=== PATIENT | male | born 1985 | race Asian ===

== ENCOUNTER 2023-05-10 10:15 | Outpatient (CLI) | payer MEDICAID, SELFPAY | END 2023-05-10 10:16 | disposition home or self-care (01) | LOC: NFLDREF 05-11 02:03 | PROVIDERS: PCP Physician Assistant Medical; Referring Provider Physician Assistant Medical; Visit Provider Nurse Practitioner Family | DX: E78.5 Hyperlipidemia, unspecified (principal); R53.83 Other fatigue; R73.09 Other abnormal glucose | CPT/HCPCS: 80061; 84443 ==

== ENCOUNTER 2023-05-29 16:03 | Outpatient (CLI) | payer MEDICAID, SELFPAY ==
--- NOTE | 2023-05-29 16:00 | CRLHL7_ITS ---
For Patients: As a result of the Century Cures Act, medical imaging exams and procedure reports are released immediately into your electronic medical record. You may view this report before your referring provider. If you have questions, please contact your health care provider. INDICATION: Other fatigue, family hx of thyroid cancer COMPARISON: 02/20/2021 TECHNIQUE: Weller scale and color Doppler images were acquired of the thyroid gland. FINDINGS: The thyroid gland demonstrates mildly heterogeneous echogenicity and has a smooth outer contour. The right lobe measures 5.1 x 1.6 x 2.1 cm and the left lobe measures 4.5 x 1.5 x 1.9 cm in size. Isthmus measures 5 millimeters. There are no suspicious masses or nodules. The color Doppler images demonstrate normal vascularity. There is no evidence of cervical lymphadenopathy or parathyroid mass. IMPRESSION: No suspicious findings. No thyroid nodule. Dictated by Tanmay Castro MD @ 05/30/2023 11:49:14 AM (Electronically Signed)
== END 2023-05-29 16:04 | disposition home or self-care (01) ==
LOC: US 16:05
PROVIDERS: PCP Physician Assistant Medical; Visit Provider Nurse Practitioner Family
DX: R53.83 Other fatigue (principal)
CPT/HCPCS: 76536

== ENCOUNTER 2024-07-22 09:07 | Outpatient (CLI) | payer BC, SELFPAY | END 2024-07-22 09:08 | disposition home or self-care (01) | PROVIDERS: PCP Physician Assistant Medical; Visit Provider Emergency Medicine | DX: R10.30 Lower abdominal pain, unspecified (principal) | CPT/HCPCS: 86140 ==